=== PATIENT | female | born 1995 | race Hispanic/Latino ===

== ENCOUNTER 2022-09-03 15:07 | Inpatient (IN) | payer OTHER ==
[~2022-09-03] VITALS: Ht 167.6 cm; Wt 113.4 kg
[2022-09-03 15:30] LABS: BASOPHILS % (AUTO) 0.2 % (0.0-5.0); HEMATOCRIT 42.7 % (36-48); LYMPHOCYTES % (AUTO) 3.9 % (21.0-51.0); MEAN CORPUSCULAR HEMOGLOBIN 31.1 pg (27.0-33.0); MEAN CORPUSCULAR HGB CONC 36.3 g/dL (32.0-36.0); MEAN CORPUSCULAR VOLUME 85.6 fL (79-99); MONOCYTES % (AUTO) 2.4 % (3.0-13.0); PLATELET COUNT (AUTO) 426 K/uL (130-400); RED BLOOD CELL COUNT(AUTO) 4.99 MIL/uL (4.00-5.50); RED CELL DISTRIBUTION WIDTH 11.8 % (11.0-15.5); WHITE BLOOD COUNT (AUTO) 17.6 K/uL (4.8-10.8)
[2022-09-03 15:43] LABS: ALBUMIN 3.3 g/dL (3.5-5.0); TOTAL PROTEIN, SERUM 8.1 g/dL (6.0-8.3)
[2022-09-03 15:47] LABS: ABG BASE EXCESS -3.3 mmol/L (-2.0-3.0); ABG HCO3 17.9 mmol/L (21.0-28.0); ABG OXYGEN SATURATION 97.7 % (95.0-99.0); ABG PCO2 24 mmHg (32-45)
[2022-09-03] MEDS ORDERED: 0.9%NACL 1000ML 1,000 ML IV ONE ×2 (16:00→16:30)
[2022-09-03] MEDS ORDERED: ONDANSETRON 4MG INJ IVP ONE ×2 (16:30→19:00)
[2022-09-03 16:43] LABS: APPEARANCE,URINE CLEAR (CLEAR); BILIRUBIN,URINE NEGATIVE (NEGATIVE); COLOR,URINE YELLOW (YELLOW); GLUCOSE, URINE (UA) NEGATIVE (NEGATIVE); KETONES,URINE 150 mg/dL (NEGATIVE); LEUKOCYTE ESTERASE ,URINE 75 Leu/uL (NEGATIVE); NITRATE,URINE NEGATIVE (NEGATIVE); PH,URINE 5.5 (5.0-8.0); PROTEIN,URINE 30 mg/dL (NEGATIVE); UROBILINOGEN,URINE 0.2 mg/dL (0.2-1.0)
[2022-09-03 16:56] LABS: MUCUS,URINE FEW LPF (None Seen); SQUAMOUS EPITHELIAL CELL,UR FEW /HPF (0-2)
[2022-09-03 16:57] LABS: HCG,QUALITATIVE URINE NEGATIVE (NEGATIVE)
[2022-09-03] MEDS ORDERED: 0.9%NACL 1000ML 1,000 ML IV SCH (19:00)
[2022-09-03] MEDS: CEFTRIAXONE 1G VIAL IVP SCH (20:28)
[2022-09-03] MEDS: ACETAMINOPHEN 325 MG TAB PO PRN (20:28)
[2022-09-03] MEDS: 0.9%NACL 1000ML 1,000 ML IV SCH (20:29)
[2022-09-03] MEDS ORDERED: ONDANSETRON 4MG INJ IVP PRN (20:30)
[2022-09-03] MEDS ORDERED: INSULIN HUMULIN R 100 UNIT/ML 3ML SQ PRN (20:30)
[2022-09-03 22:20] VITALS: BP 126/79
[2022-09-04] VITALS: BP 126/76
[2022-09-04] MEDS ORDERED: SEMA0.258 SQ (02:23)
[2022-09-04] MEDS ORDERED: ONDA-105 PO (02:23)
[2022-09-04 04:00] VITALS: BP 137/83
[2022-09-04] MEDS: 0.9%NACL 1000ML 1,000 ML IV SCH ×2 (04:21→20:33)
[2022-09-04 06:11] LABS: BASOPHILS % (AUTO) 0.3 % (0.0-5.0); EOSINOPHILS % (AUTO) 0.9 % (0.0-8.0); HEMATOCRIT 35.2 % (36-48); LYMPHOCYTES % (AUTO) 15.5 % (21.0-51.0); MEAN CORPUSCULAR HEMOGLOBIN 30.9 pg (27.0-33.0); MEAN CORPUSCULAR HGB CONC 35.5 g/dL (32.0-36.0); MEAN CORPUSCULAR VOLUME 87.1 fL (79-99); MONOCYTES % (AUTO) 11.2 % (3.0-13.0); NEUTROPHILS % (AUTO) 71.8 % (40.0-77.0); PLATELET COUNT (AUTO) 328 K/uL (130-400); RED BLOOD CELL COUNT(AUTO) 4.04 MIL/uL (4.00-5.50); RED CELL DISTRIBUTION WIDTH 11.9 % (11.0-15.5); WHITE BLOOD COUNT (AUTO) 9.3 K/uL (4.8-10.8)
[2022-09-04 06:33] LABS: ALBUMIN 2.4 g/dL (3.5-5.0); CREATININE 0.9 mg/dL (0.5-1.5); MAGNESIUM 1.9 mg/dL (1.80-2.40); PHOSPHORUS 2.4 mg/dL (2.5-4.9); POTASSIUM 3.7 mmol/L (3.5-5.1); TOTAL PROTEIN, SERUM 6.2 g/dL (6.0-8.3)
[2022-09-04 06:41] LABS: HEMOGLOBIN A1C 6.8 % (4.0-6.0)
[2022-09-04 08:05] VITALS: BP 143/92
[2022-09-04 10:59] VITALS: BP 119/76
[2022-09-04] MEDS: ACETAMINOPHEN 325 MG TAB PO PRN ×2 (12:59→19:14)
[2022-09-04 16:01] VITALS: BP 130/86
[2022-09-04] MEDS ORDERED: LOPERAMIDE 1 MG/7.5 ML UDCUP PO STA (19:41)
[2022-09-04 20:00] VITALS: BP 139/92
[2022-09-04] MEDS: CEFTRIAXONE 1G VIAL IVP SCH (20:33)
[2022-09-05] VITALS: BP 124/77
[2022-09-05 04:00] VITALS: BP 130/79
[2022-09-05 05:59] LABS: MEAN CORPUSCULAR HGB CONC 35.7 g/dL (32.0-36.0); MEAN CORPUSCULAR VOLUME 86.8 fL (79-99); RED BLOOD CELL COUNT(AUTO) 4.03 MIL/uL (4.00-5.50); RED CELL DISTRIBUTION WIDTH 11.9 % (11.0-15.5); WHITE BLOOD COUNT (AUTO) 6.2 K/uL (4.8-10.8)
[2022-09-05 06:05] LABS: CREATININE 0.8 mg/dL (0.5-1.5); MAGNESIUM 1.9 mg/dL (1.80-2.40); POTASSIUM 3.7 mmol/L (3.5-5.1)
[2022-09-05 08:52] VITALS: BP 127/96
[2022-09-05 11:42] VITALS: BP 136/92
[2022-09-05] MEDS: 0.9%NACL 1000ML 1,000 ML IV SCH (12:04)
[2022-09-05 16:21] VITALS: BP 126/80
[2022-09-05 19:00] VITALS: BP 138/92
[2022-09-05] MEDS: CEFTRIAXONE 1G VIAL IVP SCH (20:28)
[2022-09-06] VITALS: BP 132/77
[2022-09-06] MEDS: 0.9%NACL 1000ML 1,000 ML IV SCH (01:20)
[2022-09-06 04:00] VITALS: BP 131/86
[2022-09-06 05:29] LABS: MEAN CORPUSCULAR HEMOGLOBIN 30.6 pg (27.0-33.0); MEAN CORPUSCULAR HGB CONC 35.3 g/dL (32.0-36.0); MEAN CORPUSCULAR VOLUME 86.7 fL (79-99); RED BLOOD CELL COUNT(AUTO) 4.15 MIL/uL (4.00-5.50); RED CELL DISTRIBUTION WIDTH 11.9 % (11.0-15.5); WHITE BLOOD COUNT (AUTO) 9.4 K/uL (4.8-10.8)
[2022-09-06 05:45] LABS: CREATININE 0.9 mg/dL (0.5-1.5); MAGNESIUM 2.1 mg/dL (1.80-2.40); POTASSIUM 3.6 mmol/L (3.5-5.1)
[2022-09-06 07:41] VITALS: BP 134/89
[2022-09-06 11:15] VITALS: BP 139/88
== END 2022-09-06 15:55 | disposition home or self-care (01) | DRG 872 ==
LOC: EDH 15:07 → EDHIP 20:11 → 3CH 22:20
PROVIDERS: ADMIT Internal Medicine Infectious Disease; ATTEND Internal Medicine Infectious Disease
DX: A41.50 Gram-negative sepsis, unspecified (principal); A09 Infectious gastroenteritis and colitis, unspecified; Z68.41 Body mass index [BMI] 40.0-44.9, adult; Z20.822 Contact with and (suspected) exposure to COVID-19; E10.9 Type 1 diabetes mellitus without complications; E86.0 Dehydration; E66.01 Morbid (severe) obesity due to excess calories; I10 Essential (primary) hypertension; Z79.4 Long term (current) use of insulin; Z83.3 Family history of diabetes mellitus
CPT/HCPCS: 36415; 36600; 80048; 80053; 81001; 81025; 82010; 82803; 82948; 83036; 83605; 83735; 84100; 85025; 85027; 87040; 87088; 87635; 87804; 93005; C9803; G0378; J0696; J2405; J7030